=== PATIENT | female | born 1965 | race Caucasian/White ===

== ENCOUNTER 2019-07-01 08:51 | Outpatient (REF) | payer MEDICARE, MEDICAID, SELFPAY ==
[2019-07-01 21:51] LABS: Anion Gap 8.1 mmol/L (3-11); BUN 12 mg/dL (7-18); CO2 26.9 mmol/L (21.0-32.0); Calcium 8.5 mg/dL (8.5-10.1); Calculated LDL 94 mg/dL; Chloride 103 mmol/L (98-107); Cholesterol 152 mg/dL (50-200); Glucose 309 mg/dL (70-100); HDL Cholesterol 36 mg/dL (40-60); Potassium 4.5 mmol/L (3.5-5.1); Sodium 138 mmol/L (136-145); Triglyceride 114 mg/dL (30-150)
== END 2019-07-01 09:11 ==
LOC: NCHCN 08:51
PROVIDERS: PCP Nurse Practitioner Family; Visit Provider Internal Medicine
DX: E11.65 Type 2 diabetes mellitus with hyperglycemia (principal); I10 Essential (primary) hypertension
CPT/HCPCS: 80048; 80061

== ENCOUNTER 2020-01-26 14:17 | Outpatient (REF) | payer MEDICARE, MEDICAID, SELFPAY | END 2020-01-26 14:37 | LOC: NCHCN 14:17 | PROVIDERS: PCP Nurse Practitioner Family; Visit Provider Nurse Practitioner Family | DX: R35.0 Frequency of micturition (principal) | CPT/HCPCS: 87086 ==

== ENCOUNTER 2020-05-10 16:07 | Outpatient (REF) | payer MEDICARE, MEDICAID, SELFPAY | END 2020-05-10 16:27 | LOC: NCHCN 16:07 | PROVIDERS: PCP Nurse Practitioner Family; Visit Provider Nurse Practitioner Family | DX: N39.0 Urinary tract infection, site not specified (principal) | CPT/HCPCS: 87077; 87086; 87186 ==

== ENCOUNTER 2020-07-01 08:33 | Outpatient (REF) | payer MEDICARE, MEDICAID, SELFPAY ==
[2020-07-01 21:20] LABS: Abs Immature Grans 0.02 10^3/uL (0.0-0.06); Absolute Basophil Count 0.04 10^3/uL (0.0-0.2); Absolute Eosinophil Count 0.19 10^3/uL (0.0-0.7); Absolute Lymphocyte Count 2.08 10^3/uL (1.2-3.4); Absolute Neutrophil Count 4.91 10^3/uL (1.2-6.7); Basophils % 0.5; Eosinophils % 2.3; HGB 14.4 g/dL (11.2-15.7); Immature Grans % 0.2; Lymphocytes % 25.2; MCH 29.9 pg (27.0-33.0); MCHC 33.5 % (32.0-36.0); MCV 89.2 fL (80-95); MPV 10.8 fL (8.0-11.0); Monocytes % 12.1; Neutrophils % 59.7; Nucleated RBC 0 %; Platelet Count 211 10^3/uL (130-400); RBC 4.82 10^6/uL (3.93-5.22); RDW-SD 42.6 fL; WBC 8.24 10^3/uL (4.4-10.8)
[2020-07-01 22:05] LABS: ALT 51 U/L (14-59); AST 23 U/L (15-37); Albumin 3.8 g/dL (3.4-5.0); Alkaline Phosphatase 114 U/L (46-116); Anion Gap 5.2 mmol/L (3-11); BUN 16 mg/dL (7-18); Bilirubin, Total 0.4 mg/dL (0.2-1.0); CO2 27.8 mmol/L (21.0-32.0); CREATININE 0.83 mg/dL (0.55-1.02); Calcium 8.7 mg/dL (8.5-10.1); Calculated LDL 135 mg/dL (<100); Chloride 104 mmol/L (98-107); Cholesterol 197 mg/dL (<200); Glucose 346 mg/dL (74-106); HDL Cholesterol 39 mg/dL (40-60); Potassium 4.2 mmol/L (3.5-5.1); Sodium 137 mmol/L (136-145); Total Protein 7.5 g/dL (6.4-8.2); Triglyceride 119 mg/dL (<150)
== END 2020-07-01 08:53 ==
LOC: NCHCN 08:33
PROVIDERS: PCP Nurse Practitioner Family; Visit Provider Internal Medicine
DX: N39.0 Urinary tract infection, site not specified (principal); E11.65 Type 2 diabetes mellitus with hyperglycemia; K76.0 Fatty (change of) liver, not elsewhere classified; E78.5 Hyperlipidemia, unspecified
CPT/HCPCS: 80053; 80061; 87077; 85025; 87086; 87186

== ENCOUNTER 2020-07-06 09:22 | Outpatient (REF) | payer MEDICARE, MEDICAID, SELFPAY ==
[2020-07-06 21:59] LABS: Bilirubin Negative (Negative); Blood Moderate (Negative); Clarity Cloudy (Clear); Glucose 500 mg/dL (Negative); Ketones Negative (Negative); Leukocyte Esterase Small (Negative); Nitrite Negative (Negative); Specific Gravity >= 1.030 (1.005-1.025)
[2020-07-06 22:18] LABS: Bacteria Negative HPF (Negative); C & S Indicated? Yes; Casts Negative LPF (Negative); Crystals Negative HPF (Negative); Epithelial Cells Few HPF (Negative); Mucus Moderate (Negative); Other Cells Few Renal (Negative); WBC 20-50 HPF (0-5)
== END 2020-07-06 09:42 ==
LOC: NCHCN 09:22
PROVIDERS: PCP Nurse Practitioner Family; Visit Provider Internal Medicine
DX: N39.0 Urinary tract infection, site not specified (principal)
CPT/HCPCS: 81003; 81015; 87086

== ENCOUNTER 2021-01-04 10:49 | Outpatient (REF) | payer MEDICARE, MEDICAID, SELFPAY ==
[2021-01-04 13:59] LABS: COMMENT (LAB VIEW ONLY) 147.78 mg/dL; Microalb ug/mg Crea 20.6 ug/mg Cr
== END 2021-01-04 10:50 | disposition home or self-care (01) ==
LOC: NCHCN 10:49
PROVIDERS: PCP Nurse Practitioner Family; Visit Provider Internal Medicine
DX: E11.65 Type 2 diabetes mellitus with hyperglycemia (principal)
CPT/HCPCS: 82043; 82570

== ENCOUNTER 2021-05-30 16:01 | Outpatient (REF) | payer MEDICARE, MEDICAID, SELFPAY ==
[2021-05-30 17:24] LABS: HCT 42.6 % (36.0-46.0); HGB 14.6 g/dL (11.2-15.7); MCH 29.7 pg (27.0-33.0); MCHC 34.3 % (32.0-36.0); MCV 86.8 fL (80-95); MPV 10.5 fL (8.0-11.0); Platelet Count 234 10^3/uL (130-400); RBC 4.91 10^6/uL (3.93-5.22); RDW 13.2 % (11.7-14.6); RDW-SD 41.1 fL; WBC 6.56 10^3/uL (4.4-10.8)
[2021-05-30 17:46] LABS: ALT 45 U/L (14-59); AST 22 U/L (15-37); Albumin 3.9 g/dL (3.4-5.0); Alkaline Phosphatase 100 U/L (46-116); Anion Gap 9.4 mmol/L (3-11); BUN 13 mg/dL (7-18); Bilirubin, Total 0.6 mg/dL (0.2-1.0); CO2 26.6 mmol/L (21.0-32.0); CREATININE 0.9 mg/dL (0.55-1.02); Calculated LDL 148 mg/dL (<100); Chloride 99 mmol/L (98-107); Cholesterol 211 mg/dL (<200); Glucose 488 mg/dL (74-106); HDL Cholesterol 38 mg/dL (40-60); Potassium 4.6 mmol/L (3.5-5.1); Sodium 135 mmol/L (136-145); TSH 0.76 uIU/mL (0.36-3.74); Total Protein 7.5 g/dL (6.4-8.2); Triglyceride 129 mg/dL (<150)
== END 2021-05-30 16:02 | disposition home or self-care (01) ==
LOC: NCHCN 16:01
PROVIDERS: PCP Nurse Practitioner Family; Visit Provider Nurse Practitioner Family
DX: E78.5 Hyperlipidemia, unspecified (principal); N39.0 Urinary tract infection, site not specified; E11.65 Type 2 diabetes mellitus with hyperglycemia; I10 Essential (primary) hypertension; Z13.29 Encounter for screening for other suspected endocrine disorder; R01.1 Cardiac murmur, unspecified
CPT/HCPCS: 80053; 80061; 85027; 87077; 84443; 87086; 87186

== ENCOUNTER 2021-06-13 10:52 | Outpatient (REF) | payer MEDICARE, MEDICAID, SELFPAY ==
[2021-06-13 14:30] LABS: ALT 52 U/L (14-59); AST 28 U/L (15-37); Albumin 3.8 g/dL (3.4-5.0); Alkaline Phosphatase 92 U/L (46-116); Anion Gap 9.1 mmol/L (3-11); BUN 15 mg/dL (7-18); Bilirubin, Total 0.4 mg/dL (0.2-1.0); CO2 26.9 mmol/L (21.0-32.0); CREATININE 0.8 mg/dL (0.55-1.02); Calcium 9.4 mg/dL (8.5-10.1); Calculated LDL 163 mg/dL (<100); Chloride 103 mmol/L (98-107); Cholesterol 233 mg/dL (<200); Glucose 298 mg/dL (74-106); HDL Cholesterol 45 mg/dL (40-60); Potassium 4.5 mmol/L (3.5-5.1); Sodium 139 mmol/L (136-145); Total Protein 7.5 g/dL (6.4-8.2); Triglyceride 128 mg/dL (<150)
== END 2021-06-13 10:53 | disposition home or self-care (01) ==
LOC: NCHCN 10:52
PROVIDERS: PCP Nurse Practitioner Family; Visit Provider Internal Medicine
DX: E78.5 Hyperlipidemia, unspecified (principal); K76.0 Fatty (change of) liver, not elsewhere classified
CPT/HCPCS: 80053; 80061

== ENCOUNTER 2022-01-29 13:48 | Outpatient (REF) | payer OTHER, MEDICAID, SELFPAY ==
[2022-01-29 21:24] LABS: COMMENT (LAB VIEW ONLY) 65.21 mg/dL; Microalb ug/mg Crea 46.9 ug/mg Cr
== END 2022-01-29 13:49 | disposition home or self-care (01) ==
LOC: NCHCN 13:48
PROVIDERS: PCP Nurse Practitioner Family; Visit Provider Internal Medicine
DX: E11.65 Type 2 diabetes mellitus with hyperglycemia (principal)
CPT/HCPCS: 82043; 82570

== ENCOUNTER 2022-07-18 19:42 | Outpatient (REF) | payer OTHER, MEDICAID, SELFPAY | END 2022-07-18 19:43 | disposition home or self-care (01) | LOC: NCHCN 19:42 | PROVIDERS: PCP Nurse Practitioner Family; Visit Provider Nurse Practitioner Family | DX: R10.9 Unspecified abdominal pain (principal); M54.89 Other dorsalgia; R82.998 Other abnormal findings in urine | CPT/HCPCS: 87077; 87086 ==

== ENCOUNTER 2022-10-02 16:35 | Outpatient (REF) | payer OTHER, MEDICAID, SELFPAY ==
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
--- OUTSIDE RECORDS SUMMARY | 2022-10-02 16:38 | XMS_ITS | CCD ---
:1965 Author Care Team Providers Name Role Phone TOY OBANDO Attending Physician Unavailable Vital Signs Unknown or Not Available. Allergies Allergy Code Allergy Type Reaction Status METFORMIN 6809 Drug allergy Nausea Active Procedures Unknown or Not Available. History of Immunizations Unknown or Not Available. Problems Unknown or Not Available. Results Unknown or Not Available. Active Medications Unknown or Not Available. Medications Administered During Visit Unknown or Not Available. Encounters Encounter Diagnosis Diagnosis Code Start Date Type 2 diabetes mellitus with unspecified diabetic [id number] 10/27/2021 retinopathy without macular edema Social History Smoking Status Code Start Date End Date Never smoker [id number] Patient Decision Aids Unknown or Not Available. Discharge Instructions You were admitted to [facility] on 10/27/2021 12:56 with a principal diagnosis of Type 2 diabetes mellitus with unspeci fied diabetic retinopathy without macular edema You were discharged from [facility] on 10/27/2021 12:57 Should you have any questions prior to d ischarge, please contact a member of your healthcare team. If you have left the spital and have any questions, please contact your primary care physician. Chief Complaint and Reason For Visit Chief Complaint Date of Onset DIABETIC REINOPATHY Function Status Unknown or Not Available. Plan of Care Unknown or Not Available. Referral/Transition of Care Unknown or Not Available.
--- OUTSIDE RECORDS SUMMARY | 2022-10-02 16:38 | XMS_ITS | CCD ---
:1965 Author Care Team Providers Name Role Phone CORRY ROMO Attending Physician Unavailable CORRY ROMO Er Physician 1 JULIETTE Downing Registered Nurse Unavailable Vital Signs Vital Sign Value Unit Date/Time Recent/Initial? BMI (Body Mass Index) 29.95 kg/m^2 05/30/2022 17:42 In itial VS Weight Measured 180 lbs 05/30/2022 17:42 Initial VS Height 65 in 05/30/2022 17:42 Initial VS BSA (Body Surface Area) 1.94 m^2 05/30/2022 17:42 Initial VS BP Systolic 121 mmHg 05/30/2022 17:42 Initial VS BP Diastolic 67 mmHg 05/30/2022 17:42 Initial VS Respiratory Rate 18 bpm 05/30/2022 17:42 Initial VS Heart Rate 60 bpm 05/30/2022 17:42 Initial VS O2 % BldC Oximetry 95 % 05/30/2022 17:42 Initi al VS Body Temperature 36.6 degrees 05/30/2022 17:42 Initial VS BP Systolic 121 mmHg 05/30/2022 20:04 Most Recent VS BP Diastolic 67 mmHg 05/30/2022 20:04 Most Recent VS Respiratory Rate 18 bpm 05/30/2022 20:04 Most Re cent VS Heart Rate 62 bpm 05/30/2022 20:04 Most Recent VS O2 % BldC Oximetry 100 % 05/30/2022 20:04 Most Recent VS Body Temperature 36.7 degrees 05/30/2022 20:04 Most Re cent VS Allergies Allergy Code Allergy Type Reaction Status METFORMIN 6809 Drug allergy Nausea Active Procedures Unknown or Not Available. History of Immunizations Unknown or Not Available. Problems Unknown or Not Available. Results Unknown or Not Available. Active Medications Unknown or Not Available. Medications Administered During Visit Unknown or Not Available. Encounters Encounter Diagnosis Diagnosis Code Start Date Contusion of left lower leg [id number] 05/30/2022 Social History Smoking Status Code Start Date End Date Never smoker [id number] Patient Decision Aids Unknown or Not Available. Discharge Instructions You were admitted to [facility] on 05/30/2022 17:13 with a principal diagnosis of Contusion of left lower leg, initial encounter You were discharged from [facility] on 05/30/2022 20:22 Should you have any questions prior to d ischarge, please contact a member of your healthcare team. If you have left the spital and have any questions, please contact your primary care physician. Chief Complaint and Reason For Visit Chief Complaint Date of Onset LEG AND BACK INJURY Function Status Unknown or Not Available. Plan of Care Unknown or Not Available. Referral/Transition of Care Unknown or Not Available.
--- OUTSIDE RECORDS SUMMARY | 2022-10-02 16:38 | XMS_ITS | CCD ---
:1965 Author Care Team Providers Name Role Phone DAVIS LUNA Attending Physician Unavailable Vital Signs Vital Sign Value Unit Date/Time Recent/Initial? BP Systolic 103 mmHg 03/20/2022 10:15 Initial VS BP Diastolic 59 mmHg 03/20/2022 10:15 Initial VS Respiratory Rate 1 bpm 03/20/2022 10:15 Initial VS Heart Rate 49 bpm 03/20/2022 10:15 Initial VS O2 % BldC Oximetry 95 % 03/20/2022 10:15 Initi al VS BP Systolic 109 mmHg 03/20/2022 10:28 Most Recent VS BP Diastolic 64 mmHg 03/20/2022 10:28 Most Recent VS Respiratory Rate 17 bpm 03/20/2022 10:28 Most Re cent VS Heart Rate 49 bpm 03/20/2022 10:28 Most Recent VS O2 % BldC Oximetry 95 % 03/20/2022 10:28 Most Recent VS Allergies Allergy Code Allergy Type Reaction Status METFORMIN 6809 Drug allergy Nausea Active Procedures Procedure Code Procedure Type Date Colsc Flx w/[place] [address] CPT 03/20/2022 History of Immunizations Unknown or Not Available. Problems Unknown or Not Available. Results Unknown or Not Available. Active Medications Unknown or Not Available. Medications Administered During Visit Unknown or Not Available. Encounters Encounter Diagnosis Diagnosis Code Start Date Encounter for screening for malignant neoplasm of colon Z121 1 03/20/2022 Social History Smoking Status Code Start Date End Date Never smoker [id number] Patient Decision Aids Unknown or Not Available. Discharge Instructions You were admitted to [facility] on 03/20/2022 08:56 with a principal diagnosis of Encounter for screening for malignant neoplasm of colon You had the following procedures done: Colsc Flx w/Rmvl Of Tumor Polyp Lesion Snare Tq You were discharged from [facility] on 03/20/2022 11:13 Should you have any questions prior to d ischarge, please contact a member of your healthcare team. If you have left the ho spital and have any questions, please contact your primary care physician. Chief Complaint and Reason For Visit Unknown or Not Available. Function Status Unknown or Not Available. Plan of Care Unknown or Not Available. Referral/Transition of Care Unknown or Not Available.
--- OUTSIDE RECORDS SUMMARY | 2022-10-02 16:38 | XMS_ITS | CCD ---
:1965 Author Care Team Providers Name Role Phone JESSE TEJADA Attending Physician Unavailable KIRBY CHAVEZ Er Physician 1 Unavailable REINALDO Jackson Registered Nurse Unavailable Vital Signs Vital Sign Value Unit Date/Time Recent/Initial? BMI (Body Mass Index) 32.92 kg/m^2 08/07/2021 08:28 In itial VS Weight Measured 180 lbs 08/07/2021 08:28 Initial VS Height 62 in 08/07/2021 08:28 Initial VS BSA (Body Surface Area) 1.89 m^2 08/07/2021 08:28 Initial VS BP Systolic 139 mmHg 08/07/2021 08:28 Initial VS BP Diastolic 57 mmHg 08/07/2021 08:28 Initial VS Respiratory Rate 20 bpm 08/07/2021 08:28 Initial VS Heart Rate 56 bpm 08/07/2021 08:28 Initial VS O2 % BldC Oximetry 99 % 08/07/2021 08:28 Initi al VS Body Temperature 36 degrees 08/07/2021 08:28 Initial VS Allergies Allergy Code Allergy Type Reaction Status METFORMIN 6809 Drug allergy Nausea Active Procedures Unknown or Not Available. History of Immunizations Unknown or Not Available. Problems Problem Code Start Date Resolved Date Status Hypertension [id number] 08/07/2021 Resolved Diabetes [id number] 08/07/2021 Resolved Results CULT URINE CULTURE* - Collect Date/Time: 08/07/2021 08:40 Test Name Code Test Result Test Units Test Ref Range COLLECTION MODE: CLEAN CATCH N/A URINALYSIS WITH REFLEX CULT IF POSITIVE* - Collect Date/Time: 08/07/2021 08:40 Test Name Code Test Result Test Units Test Ref Range COLLECTION MODE: CLEAN CATCH N/A Color 5778-6 YELLOW N/A yellow Appearance 5767-9 SL CLOUD N/A clear Glucose urine 90877-4 500 N/A negative mg/dl Bilirubin 5770-3 NEGATIVE N/A negative Ketones 2514-8 NEGATIVE N/A negative mg/dl Spec gravity 5811-5 >=1.030 N/A 1.003 - 1.030 pH urine 2756-5 6.0 N/A 5.0 - 7.0 Protein 39020-1 30 N/A negative mg/dl Urobilinogen 99608-7 0.2 N/A <or= 1 EU/dl Nitrite. 5802-4 POSITIVE N/A negative Blood 5794-3 SMALL N/A negative Leukocytes. MODERATE N/A negative MICROSCOPIC INDICATED N/A WBCs. 03987-2 >100 N/A 0-5 / hpf RBCs 33609-9 5-10 N/A 0-5 / hpf Epith cells 81516-1 0-5 N/A 0-5 / hpf Cell types squamous N/A Crystals none N/A none Bacteria moderate N/A none Mucus 8247-9 none N/A none Casts 59629-9 none N/A none /lpf Active Medications Unknown or Not Available. Medications Administered During Visit Unknown or Not Available. Encounters Encounter Diagnosis Diagnosis Code Start Date Urinary tract infection, site not specified N390 08/07/2021 Social History Smoking Status Code Start Date End Date Never smoker [id number] Patient Decision Aids Unknown or Not Available. Discharge Instructions You were admitted to [facility] on 08/07/2021 08:24 with a principal diagnosis of Urinary tract infection, site not spe cified You had the following tests done: CULT URINE CULTURE* URINALYSIS WITH REFLEX CULT IF POSITIVE* You were discharged from [facility] on 08/07/2021 09:55 Should you have any questions prior to d ischarge, please contact a member of your healthcare team. If you have left the ho spital and have any questions, please contact your primary care physician. Chief Complaint and Reason For Visit Chief Complaint Date of Onset URINARY PROBLEM Function Status Unknown or Not Available. Plan of Care Unknown or Not Available. Referral/Transition of Care Unknown or Not Available.
== END 2022-10-02 16:36 | disposition home or self-care (01) ==
LOC: NCHCN 16:35
PROVIDERS: PCP Nurse Practitioner Family; Visit Provider Family Medicine
DX: R35.0 Frequency of micturition (principal)
CPT/HCPCS: 87077; 87086; 87186

== ENCOUNTER 2023-03-18 21:03 | Outpatient (REF) | payer OTHER, MEDICAID, SELFPAY | END 2023-03-18 21:04 | disposition home or self-care (01) | LOC: NCHCN 21:03 | PROVIDERS: PCP Nurse Practitioner Family; Visit Provider Family Medicine | DX: N39.0 Urinary tract infection, site not specified (principal) | CPT/HCPCS: 87077; 87086; 87186 ==

== ENCOUNTER 2023-06-24 13:35 | Outpatient (REF) | payer OTHER, MEDICAID, SELFPAY ==
[2023-06-24 21:17] LABS: ALT 45 U/L (14-59); AST 33 U/L (15-37); Albumin 3.4 g/dL (3.4-5.0); Alkaline Phosphatase 101 U/L (46-116); Anion Gap 8.1 mmol/L (3-11); BUN 13 mg/dL (7-18); Bilirubin, Total 0.3 mg/dL (0.2-1.0); CO2 27.9 mmol/L (21.0-32.0); CREATININE 0.9 mg/dL (0.55-1.02); Calcium 9.7 mg/dL (8.5-10.1); Calculated LDL 166 mg/dL (<100); Chloride 101 mmol/L (98-107); Cholesterol 240 mg/dL (<200); Estimated GFR 73.64 (mL/min/1.73m2); Glucose 343 mg/dL (74-106); HDL Cholesterol 48 mg/dL (40-60); Potassium 4.3 mmol/L (3.5-5.1); Sodium 137 mmol/L (136-145); Total Protein 7.7 g/dL (6.4-8.2); Triglyceride 132 mg/dL (<150)
[2023-06-24 21:45] LABS: COMMENT (LAB VIEW ONLY) 115.87 mg/dL
[2023-06-24 21:48] LABS: Microalb ug/mg Crea 118.1 ug/mg Cr
== END 2023-06-24 13:36 | disposition home or self-care (01) ==
LOC: NCHCN 13:35
PROVIDERS: Visit Provider Registered Nurse
DX: E11.65 Type 2 diabetes mellitus with hyperglycemia (principal); E78.5 Hyperlipidemia, unspecified
CPT/HCPCS: 80053; 80061; 82043; 82570

== ENCOUNTER 2024-04-29 14:44 | Outpatient (REF) | payer OTHER, MEDICAID, SELFPAY ==
[2024-04-29 14:38] LABS: HCT 41.8 % (36.0-46.0); HGB 14.3 g/dL (11.2-15.7); MCH 29.3 pg (27.0-33.0); MCHC 34.2 % (32.0-36.0); MCV 86 fL (80-95); MPV 10.8 fL (8.0-11.0); RBC 4.88 10^6/uL (3.93-5.22); RDW 13.3 % (11.7-14.6); RDW-SD 41.3 fL; WBC 5.64 10^3/uL (4.4-10.8)
[2024-04-29 15:15] LABS: Platelet Count 90 10^3/uL (130-400)
[2024-04-29 15:23] LABS: ALT 36 U/L (14-59); AST 27 U/L (15-37); Albumin 3.3 g/dL (3.4-5.0); Alkaline Phosphatase 102 U/L (46-116); Anion Gap 7.3 mmol/L (3-11); BUN 18 mg/dL (7-18); Bilirubin, Total 0.46 mg/dL (0.2-1.0); CO2 27.7 mmol/L (21.0-32.0); CREATININE 0.9 mg/dL (0.55-1.02); Calcium 9.2 mg/dL (8.5-10.1); Chloride 99 mmol/L (98-107); Estimated GFR 73.19 (mL/min/1.73m2); Glucose 438 mg/dL (74-106); Potassium 4.9 mmol/L (3.5-5.1); Sodium 134 mmol/L (136-145); Total Protein 7.3 g/dL (6.4-8.2)
== END 2024-04-29 14:45 | disposition home or self-care (01) ==
LOC: NCHCN 14:44
PROVIDERS: Visit Provider Internal Medicine
DX: I10 Essential (primary) hypertension (principal)
CPT/HCPCS: 80053; 85027

== ENCOUNTER 2024-12-10 15:11 | Outpatient (REF) | payer MEDICARE, SELFPAY ==
[2024-12-10 22:04] LABS: COMMENT (LAB VIEW ONLY) 137.82 mg/dL
[2024-12-10 22:15] LABS: Microalb ug/mg Crea 613.6 ug/mg Cr
== END 2024-12-10 15:12 | disposition home or self-care (01) ==
LOC: NCHCN 15:11
PROVIDERS: Visit Provider Internal Medicine
DX: E11.65 Type 2 diabetes mellitus with hyperglycemia (principal)
CPT/HCPCS: 82043; 82570

== ENCOUNTER 2025-01-20 16:21 | Outpatient (REF) | payer MEDICARE, SELFPAY | END 2025-01-20 16:22 | disposition home or self-care (01) | LOC: NCHCN 16:21 | PROVIDERS: Visit Provider Internal Medicine | DX: R35.0 Frequency of micturition (principal); R82.89 Other abnormal findings on cytological and histological examination of urine | CPT/HCPCS: 87086 ==

== ENCOUNTER 2025-01-27 20:12 | Outpatient (REF) | payer MEDICARE, SELFPAY | END 2025-01-27 20:13 | disposition home or self-care (01) | LOC: NCHCN 20:12 | PROVIDERS: Visit Provider Family Medicine | DX: R30.0 Dysuria (principal); R82.89 Other abnormal findings on cytological and histological examination of urine | CPT/HCPCS: 87086 ==

== ENCOUNTER 2025-02-24 21:50 | Outpatient (REF) | payer MEDICARE, SELFPAY | END 2025-02-24 21:51 | disposition home or self-care (01) | LOC: NCHCN 21:50 | PROVIDERS: Visit Provider Nurse Practitioner Family | DX: R39.89 Other symptoms and signs involving the genitourinary system (principal) | CPT/HCPCS: 87086 ==

== ENCOUNTER 2025-03-29 16:34 | Outpatient (REF) | payer MEDICARE, SELFPAY ==
[2025-03-29 21:27] LABS: HCT 32.7 % (36.0-46.0); HGB 10.8 g/dL (11.2-15.7); MCH 28.9 pg (27.0-33.0); MCHC 33.0 % (32.0-36.0); MCV 87 fL (80-95); MPV 9.5 fL (8.0-11.0); Platelet Count 320 10^3/uL (130-400); RBC 3.74 10^6/uL (3.93-5.22); RDW 13.7 % (11.7-14.6); RDW-SD 43.9 fL; WBC 5.91 10^3/uL (4.4-10.8)
[2025-03-29 21:36] LABS: Iron 46 ug/dL (50-170); Total Iron Binding Capacity 272 ug/dL (250-450); Transferrin Sat 17 % (15-50)
[2025-03-29 22:03] LABS: Anion Gap 4.5 mmol/L (3-11); BUN 14 mg/dL (7-18); CO2 29.5 mmol/L (21.0-32.0); Calcium 9.5 mg/dL (8.5-10.1); Chloride 106 mmol/L (98-107); Estimated GFR 72.73 (mL/min/1.73m2); Ferritin 230 ng/mL (8-252); Glucose 186 mg/dL (74-106); Potassium 4.4 mmol/L (3.5-5.1); Sodium 140 mmol/L (136-145); Vitamin B12 500 pg/mL (193-986)
== END 2025-03-29 16:35 | disposition home or self-care (01) ==
LOC: NCHCN 16:34
PROVIDERS: Visit Provider Internal Medicine
DX: D64.9 Anemia, unspecified (principal); N17.9 Acute kidney failure, unspecified
CPT/HCPCS: 80048; 85027; 82607; 82728; 83540; 83550